=== PATIENT | male | born 1955 | race Caucasian/White ===

== ENCOUNTER 2022-10-13 16:40 | Emergency (ER) | payer BC, MEDICARE ==
[~2022-10-13] VITALS: Ht 172.7 cm; Wt 103.9 kg
[~2022-10-13 16:40] MED LIST: LISI1TAB51 PO; MONT-39 PO; OMEP20TA20 PO
[2022-10-13] MEDS ORDERED: ALBUTEROL 0.083% 2.5 MG/3 ML INH IH STA (18:14)
[2022-10-13] MEDS ORDERED: SOLU-MEDROL 125MG VIAL IVP ONE (18:30)
[2022-10-13] MEDS ORDERED: IPRATROPIUM 0.5 MG/2.5 ML INH IH ONE (18:30)
[2022-10-13 18:39] LABS: BASOPHILS % (AUTO) 0.5 % (0.0-5.0); EOSINOPHILS % (AUTO) 2.4 % (0.0-8.0); HEMATOCRIT 46.3 % (42-54); LYMPHOCYTES % (AUTO) 18.5 % (21.0-51.0); MEAN CORPUSCULAR HEMOGLOBIN 31.7 pg (27.0-33.0); MEAN CORPUSCULAR HGB CONC 33.9 g/dL (32.0-36.0); MEAN CORPUSCULAR VOLUME 93.5 fL (79-99); MONOCYTES % (AUTO) 11.7 % (3.0-13.0); PLATELET COUNT (AUTO) 340 K/uL (130-400); RED BLOOD CELL COUNT(AUTO) 4.95 MIL/uL (4.50-6.20); RED CELL DISTRIBUTION WIDTH 12.6 % (11.0-15.5); WHITE BLOOD COUNT (AUTO) 12.3 K/uL (4.8-10.8)
[2022-10-13 18:50] LABS: CREATININE 1.1 mg/dL (0.5-1.5); POTASSIUM 3.6 mmol/L (3.5-5.1)
[2022-10-13 18:55] LABS: ALBUMIN 3.3 g/dL (3.5-5.0); TOTAL PROTEIN, SERUM 7.5 g/dL (6.0-8.3)
[2022-10-13 19:01] LABS: APPEARANCE,URINE CLEAR (CLEAR); BILIRUBIN,URINE NEGATIVE (NEGATIVE); COLOR,URINE LIGHT-YELLOW (YELLOW); GLUCOSE, URINE (UA) >=1000 mg/dL (NEGATIVE); KETONES,URINE NEGATIVE (NEGATIVE); LEUKOCYTE ESTERASE ,URINE NEGATIVE Leu/uL (NEGATIVE); NITRATE,URINE NEGATIVE (NEGATIVE); OCCULT BLOOD,URINE NEGATIVE (NEGATIVE); PH,URINE 5.5 (5.0-8.0); PROTEIN,URINE 20 mg/dL (NEGATIVE); UROBILINOGEN,URINE 0.2 mg/dL (0.2-1.0)
[2022-10-13 19:04] LABS: RBC,URINE 0-1 /HPF (0-1)
[2022-10-13 19:09] LABS: B-TYPE NATRIURETIC PEPTIDE 65 pg/mL (0-100)
[2022-10-13 19:47] LABS: ABG HCO3 22.4 mmol/L (21.0-28.0); ABG OXYGEN SATURATION 90.1 % (95.0-99.0); ABG PCO2 34 mmHg (35-48)
[2022-10-13] MEDS ORDERED: ALBUTEROL 0.083% 2.5 MG/3 ML INH IH ONE (22:30)
[2022-10-13 23:53] VITALS: BP 130/58
[2022-10-14] MEDS ORDERED: ALBU18HF7 IH (00:01)
[2022-10-14] MEDS ORDERED: AZITHROMYCIN 250 MG TABLET PO STA (00:01)
[2022-10-14] MEDS ORDERED: AZIT250T9 PO (00:01)
[2022-10-14] MEDS ORDERED: PRED20TA3 PO (00:01)
[2022-10-14] MEDS ORDERED: AZITHROMYCIN 250 MG TABLET PO ONE (00:05)
== END 2022-10-14 00:19 | disposition home or self-care (01) ==
LOC: EDH 16:40
DX: J44.1 Chronic obstructive pulmonary disease with (acute) exacerbation (principal); B34.9 Viral infection, unspecified; J06.9 Acute upper respiratory infection, unspecified; I48.91 Unspecified atrial fibrillation; E11.9 Type 2 diabetes mellitus without complications; Z79.899 Other long term (current) drug therapy; Z88.1 Allergy status to other antibiotic agents; Z20.822 Contact with and (suspected) exposure to COVID-19
CPT/HCPCS: 99285; 96374; 71045; 87635; 80053; 82803; 83880; 85025; 87804 ×2; 81001; 36415; 36600; 94640 ×3; C9803; J2930